=== PATIENT | female | born 1965 | race Caucasian/White ===

== ENCOUNTER 2019-05-05 05:46 | Observation (INO) | payer BC ==
--- NOTE | 2019-05-04 19:16 | Pre-Procedure Note/Attestation ---
Pre-Procedure Note/Attestation Complete Prior to Procedure Planned Procedure: not applicable Procedure Narrative: 1. Uvulopalatopharyngoplasty 2. Partial reduction base of tongue stage 1 Indications for Procedure Pre-Operative Diagnosis: Sleep apmea Attestation I attest that I discussed the nature of the procedure; its benefits; risks and complications; and alternatives (and the risks and benefits of such alternatives ), prior to the procedure, with the patient (or the patient's legal front office representative). I attest that, if there was a reasonable possibility of needing a blood transfusion, the patient (or the patient's legal front office representative) was given the [facility] standardized written summary, pursuant to the [place] Blood Safety Act ([place] Health and Safety Code # 1645, as amended). I attest that I re-evaluated the patient just prior to the surgery and that there has been no change in the patient's H&P which has been completed by her PMD and subsequently reviewed by me and will be signed once uploaded. Chao Valencia MD May 04, 2019 19:16
--- NOTE | 2019-05-04 19:17 | Brief Operative Note ---
Immediate Post Operative Note Operative Note Chief Complaint: Sleep apnea Pre-op Diagnosis: Sleep apmea Procedure: 1. Uvulopalatopharyngoplasty 2. Partial reduction base of tongue stage 1 Post-op Diagnosis: same as pre-op Surgeon: Chao Valencia Glue Size Machine Operator: none Additional Surgeons: none Anesthesia: general Specimen: yes Complications: none Condition: stable Fluids: D5LR Estimated Blood Loss: volume - 5cc Packing: none Implant(s) used?: No Chao Valencia MD May 04, 2019 19:17
--- NOTE | 2019-05-04 19:23 | Discharge Instructions ---
Discharge Instructions Discharge Instructions Follow up with: next week at Dr. Valencia's office-pt has appt already Resume Normal Activity?: No Activity: as tolerated Pneumonia Vaccine: pt refused vaccine Influenza Vaccine (Aug to Jan): pt refused vaccine Follow Up Orders Pt has printed post op instructions given to her at her pre op visit-reviewed with her at that time. Return to Work/School on: May 17, 2019 For Surgical Patients Dressing Care: other - none For Congestive Heart Failure Reminder Report to your physician any weight gain of 5 pounds or more in one week. Chao Valencia MD May 04, 2019 19:23
[~2019-05-05] VITALS: Ht 175.3 cm; Wt 61.2 kg
[2019-05-05] VITALS (14 sets, daily range): BP systolic 114–144; BP diastolic 65–81
[~2019-05-05 05:46] MED LIST: LISINOPRIL20 MG ORAL; LORAZEPAM0.5 MG ORAL; TRAZODONE HCL50 MG ORAL
[2019-05-05] MEDS ORDERED: Bupivacaine w/Epi 0.5% 30ml Vial INJ ONE (07:04)
[2019-05-05] MEDS ORDERED: ceFAZolin sod 1 GM in D5W 55 ML IV ONE (07:15)
--- NOTE | 2019-05-05 07:20 | Anethesia Preoperative Eval ---
Anesthesia Pre-op PMH/ROS General Date of Evaluation: May 05, 2019 Anesthesiologist: Dale ASA Score: ASA 2 Mallampati Score Class I : Soft palate, uvula, fauces, pillars visible Class II: Soft palate, uvula, fauces visible Class III: Soft palate, base of uvula visible Class IV: Only hard plate visible Mallampati Classification: Class III Surgeon: Annie Diagnosis: Severe JANIE Surgical Procedure: Uvulopalatopharyngoplasty, partial resection of the base of tongue Anesthesia History: none Family History: no anesthesia problems Allergies: Coded Allergies: LATEX (Verified Allergy, Intermediate, 05/04/19) ITCHING,SKIN RASH Medications: see eMAR Patient NPO?: Yes NPO Date: May 04, 2019 NPO Time: 22:00 Past Medical History Cardiovascular: Reports: HTN, other - HLD; Denies: CAD, NM, valve dz, arrhythmia Pulmonary: Reports: JANIE - severe; Denies: asthma, COPD, other Gastrointestinal/Genitourinary: Denies: GERD, CRI, ESRD, other Neurologic/Psychiatric: Reports: depression/anxiety; Denies: dementia, CVA, TIA, other Endocrine: Denies: DM, hypothyroidism, steroids, other HEENT: Denies: cataract (L), cataract (R), glaucoma, EWIIAAPAAYP (L), EWIIAAPAAYP (R), other Hematology/Immune: Denies: anemia, DVT, bleeding disorder, other Musculoskeletal/Integumentary: Denies: OA, RA, DJD, DDD, edema, other PSxH Narrative: Septoplasty Anesthesia Pre-op Phys. Exam Physician Exam Last Vital Signs Date Time Temp Pulse Resp B/P (MAP) Pulse Ox O2 Delivery O2 Flow Rate FiO2 05/05/19 06:55 Room Air Constitutional: NAD Cardiovascular: RRR Respiratory: CTA Airway Exam Mallampati Score: Class III MO: full ROM: full Teeth: intact Anesthesia Pre-op A/P Labs see chart Studies Pre-op Studies: EKG - sr Risk Assessment & Plan Assessment: ASA II Plan: GA Status Change Before Surgery: No Pre-Antibiotics Drug: Ancef 1g Given Within 1 Hr of Incision: Yes Kathleen Mora MD May 05, 2019 07:20
[2019-05-05] MEDS ORDERED: Zemuron 50mg/5ml Inj IV ONE (07:29)
[2019-05-05] MEDS ORDERED: Lidocaine 1% MPF 10mg/ml 5ml ONE (07:30)
[2019-05-05] MEDS ORDERED: Sterile Water Irrig 1000ml IRRIG ONE (07:30)
[2019-05-05] MEDS ORDERED: Propofol 200mg/20ml IV ONE (07:30)
[2019-05-05] MEDS ORDERED: LR 1000ml ONE (07:30)
[2019-05-05] MEDS ORDERED: fentaNYL 100 mcg/2 mL IV ONE (07:30)
[2019-05-05] MEDS ORDERED: NS Irrig 1000ml ONE (07:30)
[2019-05-05] MEDS ORDERED: Midazolam 2mg/2ml Inj ONE (07:30)
[2019-05-05] MEDS ORDERED: Dexamethasone 4mg/ml vial ONE (07:31)
[2019-05-05] MEDS ORDERED: Metoclopramide 10mg/2ml Inj ONE (07:31)
[2019-05-05] MEDS ORDERED: LR 1000ml 1,000 ML IVLG SCH (07:34)
[2019-05-05] MEDS ORDERED: Midazolam 2mg/2ml Inj IVP PRN ×2 (07:45→08:00)
[2019-05-05] MEDS ORDERED: DiphenhydrAMINE 50mg/ml Inj IVP PRN (07:45)
[2019-05-05] MEDS ORDERED: Hydromorphone 0.5mg/0.5ml inj IVP PRN (07:45)
[2019-05-05] MEDS ORDERED: Metoclopramide 10mg/2ml Inj IVP PRN ×3 (07:45→11:00)
[2019-05-05] MEDS ORDERED: fentaNYL 100 mcg/2 mL IV PRN (07:45)
[2019-05-05] MEDS ORDERED: LORazepam Inj 2mg/ml 1ml IV PRN (07:45)
[2019-05-05] MEDS ORDERED: Neostigmine 1mg/ml 10ml Inj ONE (08:05)
[2019-05-05] MEDS ORDERED: Glycopyrrolate 0.2mg/ml 1ml Vial ONE (08:05)
[2019-05-05] MEDS ORDERED: Flumazenil 0.1mg/ml 5ml Inj IV ONE (08:15)
--- NOTE | 2019-05-05 08:27 | Immediate Post-Op Evaluation ---
Immediate Post-Op Evalulation Immediate Post-Op Evalulation Procedure: Ubuloopalatopharyngoplasty, partial resection of base of tongue Date of Evaluation: May 05, 2019 Time of Evaluation: 08:28 IV Fluids: 500 Blood Products: 0 Estimated Blood Loss: 15 Urinary Output: 0 Blood Pressure Systolic: 115 Blood Pressure Diastolic: 68 Pulse Rate: 89 Respiratory Rate: 17 O2 Sat by Pulse Oximetry: 100 Temperature (Fahrenheit): 97.7 Pain Score (1-10): 0 Nausea: No Vomiting: No Complications 0 Patient Status: awake, reacts, patent, none Hydration Status: adequate Drug: Ancef 1g Given Within 1 Hr of Incision: Yes Kathleen Mora MD May 05, 2019 08:27
--- NOTE | 2019-05-05 08:27 | 48 Hour Post Anesthesia Eval ---
Post Anesthesia Evaluation Procedure: Ubuloopalatopharyngoplasty, partial resection of base of tongue Date of Evaluation: May 05, 2019 Airway: patent Nausea: No Vomiting: No Pain Intensity: 0 Hydration Status: adequate Cardiopulmonary Status: at baseline Mental Status/LOC: patient returned to baseline Post-Anesthesia Complications: 0 Follow-up care needed: ready to discharge Kathleen Mora MD May 05, 2019 08:27
[2019-05-05] MEDS ORDERED: HYDROcodone/Acetamin 5/325 tab ORAL PRN ×2 (08:45→11:00)
[2019-05-05] MEDS ORDERED: HYDROmorphone 1mg/ml Carpuject SUBQ PRN ×2 (08:45→11:00)
[2019-05-05] MEDS: Dexamethasone 4mg/ml vial IVP SCH ×3 (09:00→17:32)
[2019-05-05] MEDS ORDERED: LR 1000ml 1,000 ML IV SCH (10:30)
--- NOTE | 2019-05-05 14:15 | Operative Note - Dictated ---
DATE OF OPERATION: 05/05/2019 SURGEON: Chao Valencia M.D. ERP CONSULTANT: None. ANESTHESIOLOGIST: Kathleen Hunter M.D. ANESTHESIA: A 6 mL of 1% lidocaine with 1/100,000 epinephrine injected into the soft palate and the tongue. PROCEDURE: 1. Uvulopalatopharyngoplasty. 2. Partial reduction base of tongue, stage 1. INDICATION FOR SURGERY: Obstructive sleep apnea. PREOPERATIVE DIAGNOSIS: Obstructive sleep apnea. POSTOPERATIVE DIAGNOSIS: Obstructive sleep apnea. FINDINGS: Hypertrophied base of tongue and soft palate. TECHNIQUE: The patient was prepped and draped in usual manner. A time-out was performed. All agreed as to the procedure and equipment required. Initially, a mouth gag was placed to open the jaw. The patient was under general anesthesia with a small endotracheal tube. I then grasped the base of the uvula, put stitches and then cut below to minimize any bleeding. The uvula was sent for permanent section. I then placed a radiofrequency x3, 10 seconds, setting of 6 covered with saline gel x3, mid and lateral part of the soft palate 1 cm to the left and the right of the midline and midline as well. I then turned my attention to the tongue, made six passes within 1 cm of the lateral midline of the tongue to behind the circumvallate papillae, one anterior 1 cm, one 2 cm anterior. Each 10 seconds setting of 6 coated with saline gel. Mouth gag was removed. No significant bleeding, 5 mL at the best. Sponge and needle count was correct. I used a 4-0 plain suture. ESTIMATED BLOOD LOSS: 5 mL. COUNTS: None. DRAINS: None. The patient awake and alert, and stable in the operating room, extubated, and in the recovery room. Chao Valencia M.D. : WM JOB#: [id number] CC: [email or web address]
[2019-05-05] MEDS ORDERED: LORazepam 0.5mg tab ORAL SCH (14:45)
[2019-05-05] MEDS ORDERED: Lisinopril 20mg tab ORAL SCH (18:00)
--- NOTE | 2019-05-05 18:35 | NUR ---
CHARGE NURSE NOTES: Pt signed out AMA, explained the risk of leaving w/out advice from the doctor. ANCELMO gannon tried to explained to wait for callback from DR Valencia, but pt insisted to leave. IV line ripped off by pt herself, dressing applied. left mesage to Dr Valencia's voicemail.ANCELMO gannon aware.
--- NOTE | 2019-05-05 19:57 | NUR ---
NURSE NOTES: DR Fahad GARCIA CALLED BACK AND INFORMED OF PT LEAVING AMA.
[2019-05-05] MEDS ORDERED: TraZODone 50mg tab ORAL SCH (21:00)
--- NOTE | 2019-05-07 14:57 | Discharge Summary ---
Discharge Summary Discharge Summary _ DATE OF ADMISSION: 05/05/2019 DATE OF DISCHARGE: 05/05/2019 DISCHARGED BY: Dr. Chao Valencia BRIEF HOSPITAL COURSE: Patient is a 54-year-old female, who had obstructive sleep apnea, was admitted on 05/05/2019 and underwent uvulopalatopharyngoplasty and partial reduction of the base of the tongue. Findings showed hypertrophied base of the tongue and soft palate. She tolerated procedure well. Surgery was uneventful. Post- operatively, patient was admitted under observation for post-op care. She was placed on SCDs for DVT prophylaxis. She was given pain management. She was given IV hydration. Diet was advanced. She was tolerating diet. Patient was eventually cleared for discharge home. FINAL DIAGNOSES: Obstructive sleep apnea PROCEDURE: 1. Uvulopalatopharyngoplasty. 2. Partial reduction base of tongue, stage 1. (Refer to Operative Report) DISCHARGE DISPOSITION: Patient was discharged home. DISCHARGE MEDICATIONS: Refer to Medication Reconciliation Sheet. DISCHARGE INSTRUCTIONS: Post-op instructions given. Follow-up in a week. I have been assigned to complete a DC summary on this account, I was not involved with the patient's management. Nilda Dietrich NP May 07, 2019 14:57
== END 2019-05-05 18:35 | disposition left against medical advice (07) ==
LOC: SDS 05:46 → EDSTATUS 07:30 → 3E 09:22
DX: G47.33 Obstructive sleep apnea (adult) (pediatric) (principal); I10 Essential (primary) hypertension; J44.9 Chronic obstructive pulmonary disease, unspecified; E78.5 Hyperlipidemia, unspecified; F32.9 Major depressive disorder, single episode, unspecified; F41.9 Anxiety disorder, unspecified; Z91.040 Latex allergy status; Z86.73 Personal history of transient ischemic attack (TIA), and cerebral infarction without residual deficits; Z79.899 Other long term (current) drug therapy
CPT/HCPCS: 41530; 42145; 87081; 96360; J0690; J1100; J2250; J2405; J2704; J2710; J2765; J3010; 94003; 94150